=== PATIENT | male | born 1970 | race Two or more races ===

== ENCOUNTER → 2016-03-19 | Outpatient (REF) | payer OTHER | LOC: M SFHCADAM 10:05 | PROVIDERS: ATTEND Family Medicine | DX: Z00.00 Encounter for general adult medical examination without abnormal findings (principal) ==

== ENCOUNTER → 2016-03-22 | Outpatient (REF) | payer OTHER ==
[2016-03-22 13:19] LABS: BASO # 0.1 K/mm3 (0.0-0.2); BASO % 0.5 % (0.0-1.0); EOS # 0.2 K/mm3 (0.0-0.50); EOS % 1.5 % (0.0-3.0); LARGE UNSTAINED CELL # 0.3 K/mm3 (0.0-0.4); LARGE UNSTAINED CELL % 3.1 % (0.0-4.0); LYMPH % 15.6 % (24.0-44.0); MEAN CORPUSCULAR HEMOGLOBIN 28.5 pg (27.0-33.0); MEAN CORPUSCULAR HGB CONC 33.8 g/dl (32.0-36.5); MEAN CORPUSCULAR VOLUME 84.3 fl (80.0-96.0); MONO # 1.2 K/mm3 (0.0-0.8); MONO % 10.7 % (0.0-5.0); NEUTROPHILS # 7.5 K/mm3 (1.8-7.7); NEUTROPHILS % 68.6 % (36.0-66.0); PLATELET COUNT, AUTOMATED 248 k/mm3 (150-450); RED CELL DISTRIBUTION WIDTH 13.5 % (11.5-14.5)
[2016-03-22 13:24] LABS: ALBUMIN 3.6 GM/DL (3.2-5.2); ALBUMIN/GLOBULIN RATIO 1.03 (1.00-1.93); ALKALINE PHOSPHATASE 77 U/L (45-117); ALT/SGPT 40 U/L (12-78); ANION GAP 9 MEQ/L (8-16); AST/SGOT 16 U/L (15-37); BILIRUBIN,TOTAL 0.3 MG/DL (0.2-1.0); BLOOD UREA NITROGEN 12 MG/DL (7-18); CALCIUM LEVEL 8.5 MG/DL (8.5-10.1); CARBON DIOXIDE LEVEL 27 MEQ/L (21-32); CHLORIDE LEVEL 103 MEQ/L (98-107); CHOLESTEROL LEVEL 213 MG/DL (<200); CREATININE FOR GFR 0.83 MG/DL (0.70-1.30); FREE T4 1.01 NG/DL (0.76-1.46); GLOMERULAR FILTRATION RATE > 60.0 (>60); GLUCOSE, FASTING 110 MG/DL (70-105); SODIUM LEVEL 139 MEQ/L (136-145); TOTAL PROTEIN 7.1 GM/DL (6.4-8.2); TRIGLYCERIDES LEVEL 365 MG/DL (<150)
== END ==
LOC: M SFHCADAM 10:12
PROVIDERS: ATTEND Family Medicine
DX: Z00.00 Encounter for general adult medical examination without abnormal findings (principal)

== ENCOUNTER → 2016-04-13 | Outpatient (REF) | payer OTHER | LOC: M SFHCADAM 10:24 | PROVIDERS: ATTEND Family Medicine | DX: R73.01 Impaired fasting glucose (principal) ==

== ENCOUNTER 2017-04-08 06:34 | Emergency (ER) | payer OTHER | END 2017-04-08 09:08 | disposition home or self-care (01) | LOC: M ED 06:34 | DX: S22.41XA Multiple fractures of ribs, right side, initial encounter for closed fracture (principal); X58.XXXA Exposure to other specified factors, initial encounter; Y93.72 Activity, wrestling; F17.210 Nicotine dependence, cigarettes, uncomplicated; E66.9 Obesity, unspecified; Z98.890 Other specified postprocedural states | CPT/HCPCS: 71101 ==

== ENCOUNTER → 2017-10-28 | Outpatient (CLI) | payer OTHER | LOC: M ADAMS 17:51 | DX: M54.5 Low back pain (principal) | CPT/HCPCS: 72100 ==

== ENCOUNTER → 2018-03-20 | Outpatient (REF) | payer OTHER ==
[~2018-03-20] MED LIST: NORCOTAB PO
[2018-03-20 14:27] LABS: ALBUMIN 3.7 GM/DL (3.2-5.2); ALT/SGPT 26 U/L (12-78); BILIRUBIN,TOTAL 0.2 MG/DL (0.2-1.0); BLOOD UREA NITROGEN 9 MG/DL (7-18); CALCIUM LEVEL 8.7 MG/DL (8.5-10.1); CARBON DIOXIDE LEVEL 26 MEQ/L (21-32); CHLORIDE LEVEL 103 MEQ/L (98-107); CHOLESTEROL LEVEL 229 MG/DL (<200); CHOLESTEROL RISK RATIO 6.026 (<5); CREATININE FOR GFR 0.74 MG/DL (0.70-1.30); GLOMERULAR FILTRATION RATE > 60.0 (>60); GLUCOSE, FASTING 112 MG/DL (70-100); HDL CHOLESTEROL 38 MG/DL (>40); NON-HDL-C 191 MG/DL; SODIUM LEVEL 138 MEQ/L (136-145); TOTAL PROTEIN 6.8 GM/DL (6.4-8.2); TRIGLYCERIDES LEVEL 467 MG/DL (<150)
[2018-03-20 14:53] LABS: HEMOGLOBIN A1c 6.4 %
== END ==
LOC: M LABDRWAD 12:10
PROVIDERS: ATTEND Family Medicine
DX: R73.01 Impaired fasting glucose (principal); E78.5 Hyperlipidemia, unspecified

== ENCOUNTER → 2018-03-20 | Outpatient (CLI) | payer OTHER ==
[2018-03-20 14:26] LABS: ALBUMIN 3.7 GM/DL (3.2-5.2); ALT/SGPT 30 U/L (12-78); BILIRUBIN,TOTAL 0.3 MG/DL (0.2-1.0); BLOOD UREA NITROGEN 9 MG/DL (7-18); CALCIUM LEVEL 8.9 MG/DL (8.5-10.1); CARBON DIOXIDE LEVEL 26 MEQ/L (21-32); CHLORIDE LEVEL 103 MEQ/L (98-107); CREATININE FOR GFR 0.76 MG/DL (0.70-1.30); GLOMERULAR FILTRATION RATE > 60.0 (>60); GLUCOSE, FASTING 113 MG/DL (70-100); LIPASE 144 U/L (73-393); MAGNESIUM LEVEL 2.2 MG/DL (1.8-2.4); SODIUM LEVEL 137 MEQ/L (136-145); TOTAL PROTEIN 6.9 GM/DL (6.4-8.2)
[2018-03-20 14:28] LABS: BASO # 0.1 10^3/uL (0.0-0.2); BASO % 0.9 % (0.0-1.0); EOS # 0.1 10^3/uL (0.0-0.50); EOS % 1.4 % (0.0-3.0); HEMATOCRIT 43.2 % (42.0-52.0); HEMOGLOBIN 14.6 g/dl (13.5-17.5); LYMPH # 1.4 10^3/uL (1.5-4.5); MEAN CORPUSCULAR HEMOGLOBIN 28.6 pg (27.0-33.0); MEAN CORPUSCULAR HGB CONC 33.8 g/dl (32.0-36.5); MEAN CORPUSCULAR VOLUME 84.5 fl (80.0-96.0); MONO # 0.9 10^3/uL (0.0-0.8); MONO % 12.1 % (0.0-5.0); NEUTROPHILS # 5.1 10^3/uL (1.8-7.7); NEUTROPHILS % 67.1 % (36.0-66.0); PLATELET COUNT, AUTOMATED 229 10^3/uL (150-450); RED BLOOD COUNT 5.11 10^6/uL (4.30-6.10); WHITE BLOOD COUNT 7.6 10^3/uL (4.0-10.0)
--- NOTE | 2018-03-21 03:39 | REP ---
Clinical: Chest pain . Comparison: 01/31/2003 . Technique: PA and lateral. Findings: The mediastinum and cardiac silhouette are normal. The lung ugarte are clear and without acute consolidation, effusion, or pneumothorax. The skeletal structures are intact and normal. Impression: 1. No acute cardiopulmonary process. Electronically Signed by Sharan Rosales MD 03/21/2018 03:30 A
== END ==
LOC: M ADAMS 09:16
PROVIDERS: ATTEND Physician Assistant
DX: R07.9 Chest pain, unspecified (principal)

== ENCOUNTER → 2018-08-10 | Outpatient (REF) | payer OTHER ==
[~2018-08-10] MED LIST changes: +HYDR-3715 PO; -NORCOTAB PO
[2018-08-10 18:08] LABS: HEMOGLOBIN A1c 6.3 %
== END ==
LOC: M SFHCADAM 14:54
PROVIDERS: ATTEND Family Medicine
DX: R73.03 Prediabetes (principal)

== ENCOUNTER → 2019-01-31 | Outpatient (REF) | payer OTHER | LOC: M SFHCADAM 15:07 | PROVIDERS: ATTEND Family Medicine | DX: M51.36 Other intervertebral disc degeneration, lumbar region (principal); R73.03 Prediabetes; E78.2 Mixed hyperlipidemia ==

== ENCOUNTER → 2019-03-23 | Outpatient (REF) | payer OTHER ==
[2019-03-23 14:26] LABS: BLOOD UREA NITROGEN 11 MG/DL (7-18); CREATININE FOR GFR 0.77 MG/DL (0.70-1.30); GLOMERULAR FILTRATION RATE > 60.0 (>60)
== END ==
LOC: M LABDRAW1 13:12
PROVIDERS: ATTEND Physician Assistant
DX: M47.816 Spondylosis without myelopathy or radiculopathy, lumbar region (principal)

== ENCOUNTER → 2019-05-07 | Outpatient (REF) | payer OTHER ==
[2019-05-07 16:20] LABS: BASO # 0.1 10^3/uL (0.0-0.2); BASO % 1.4 % (0.0-1.0); EOS # 0.1 10^3/uL (0.0-0.5); HEMATOCRIT 47.3 % (42.0-52.0); LYMPH # 1.5 10^3/uL (1.5-5.0); LYMPH % 24.1 % (24.0-44.0); MEAN CORPUSCULAR HEMOGLOBIN 28.9 pg (27.0-33.0); MEAN CORPUSCULAR HGB CONC 33.8 g/dl (32.0-36.5); MEAN CORPUSCULAR VOLUME 85.4 fl (80.0-96.0); MONO # 0.7 10^3/uL (0.0-0.8); MONO % 11.4 % (0.0-5.0); NEUTROPHILS # 3.9 10^3/uL (1.5-8.5); NEUTROPHILS % 60.8 % (36.0-66.0); PLATELET COUNT, AUTOMATED 250 10^3/uL (150-450); RED BLOOD COUNT 5.54 10^6/uL (4.30-6.10); WHITE BLOOD COUNT 6.4 10^3/uL (4.0-10.0)
[2019-05-07 16:27] LABS: ALBUMIN 3.8 GM/DL (3.2-5.2); ALT/SGPT 32 U/L (12-78); BILIRUBIN,TOTAL 0.4 MG/DL (0.2-1.0); BLOOD UREA NITROGEN 10 MG/DL (7-18); CARBON DIOXIDE LEVEL 27 MEQ/L (21-32); CHLORIDE LEVEL 108 MEQ/L (98-107); CHOLESTEROL LEVEL 240 MG/DL (<200); CHOLESTEROL RISK RATIO 5.853 (<5); CREATININE FOR GFR 0.76 MG/DL (0.70-1.30); GLOMERULAR FILTRATION RATE > 60.0 (>60); GLUCOSE, FASTING 112 MG/DL (70-100); HDL CHOLESTEROL 41 MG/DL (>40); NON-HDL-C 199 MG/DL; POTASSIUM SERUM 4.1 MEQ/L (3.5-5.1); SODIUM LEVEL 140 MEQ/L (136-145); TOTAL PROTEIN 7.5 GM/DL (6.4-8.2); TRIGLYCERIDES LEVEL 518 MG/DL (<150)
[2019-05-07 16:36] LABS: HEMOGLOBIN A1c 6.5 %
== END ==
LOC: M SFHCADAM 16:00
PROVIDERS: ATTEND Family Medicine
DX: M51.36 Other intervertebral disc degeneration, lumbar region (principal); R73.03 Prediabetes; E78.2 Mixed hyperlipidemia

== ENCOUNTER → 2019-05-10 | Outpatient (REF) | payer OTHER ==
[2019-05-10 12:55] LABS: HEMOGLOBIN A1c 6.3 %
== END ==
LOC: M SFHCADAM 11:16
PROVIDERS: ATTEND Family Medicine
DX: R73.09 Other abnormal glucose (principal)

== ENCOUNTER 2020-04-06 01:59 | Emergency (ER) | payer OTHER ==
[~2020-04-06] VITALS: Ht 175.3 cm; Wt 127.8 kg
[2020-04-06] MEDS ORDERED: OMEP-405 PO (02:08)
[2020-04-06] MEDS ORDERED: IBUP1TAB6 PO (02:08)
[2020-04-06] MEDS ORDERED: MOM30SS PO (02:09)
--- OUTSIDE RECORDS SUMMARY | 2020-04-06 02:09 | CCD ---
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 Name Role Phone ANTECOL, Matt PUENTE MD Unavailable Unavailable ANTECOL, Matt PUENTE MD Unavailable Unavailable ANTECOL, Matt PUENTE MD Unavailable Unavailable ANTECOL, Matt PUENTE MD Unavailable Unavailable ANTECOLMatt MD Unavailable Unavailable ANTECOL, Matt PUENTE MD Unavailable Unavailable ANTECOL, Matt PUENTE MD Unavailable Unavailable ANTECOL, Matt PUENTE MD Unavailable Unavailable ANTECOLMatt MD Unavailable Unavailable ANTECOLMatt MD Unavailable Unavailable ANTECOLMatt MD Unavailable Unavailable ANTECOLMatt MD Unavailable Unavailable ANTECOLMatt MD Unavailable Unavailable ANTECOL, Matt PUENTE MD Unavailable Unavailable ANTECOLMatt MD Unavailable Unavailable ANTECOLMatt MD Unavailable Unavailable ANTECOLMatt MD Unavailable Unavailable ANTECOLMatt MD Unavailable Unavailable ANTECOLMatt MD Unavailable Unavailable ANTECOLMatt MD Unavailable Unavailable ANTECOLMatt MD Unavailable Unavailable ANTECOLMatt MD Unavailable Unavailable ANTECOLMatt MD Unavailable Unavailable ANTECOLMatt MD Unavailable Unavailable ANTECOLMatt MD Unavailable Unavailable ANTECOLMatt MD Unavailable Unavailable ANTECOLMatt MD Unavailable Unavailable ANTECOLMatt MD Unavailable Unavailable ANTECOLMatt MD Unavailable Unavailable ANTECOLMatt MD Unavailable Unavailable ANTECOLMatt MD Unavailable Unavailable ANTECOLMatt MD Unavailable Unavailable ANTECOLMatt MD Unavailable Unavailable ANTECOL, Matt PUENTE MD Unavailable Unavailable ANTECOL, Matt PUENTE MD Unavailable Unavailable ANTECOL, Matt PUENTE MD Unavailable Unavailable ANTECOL, Matt PUENTE MD Unavailable Unavailable ANTECOL, Matt PUENTE MD Unavailable Unavailable ANTECOL, Matt PUENTE MD Unavailable Unavailable ANTECOL, Matt PUENTE MD Unavailable Unavailable ANTECOL, Matt PUENTE MD Unavailable Unavailable ANTECOL, Matt PUENTE MD Unavailable Unavailable ANTECOL, Matt PUENTE MD Unavailable Unavailable ANTECOL, Matt PUENTE MD Unavailable Unavailable ANTECOL, Matt PUENTE MD Unavailable Unavailable ANTECOL, Matt PUENTE MD Unavailable Unavailable ANTECOL, Matt PUENTE MD Unavailable Unavailable ANTECOL, Matt PUENTE MD Unavailable Unavailable ANTECOL, Matt PUENTE MD Unavailable Unavailable ANTECOL, Matt PUENTE MD Unavailable Unavailable ANTECOL, Matt PUENTE MD Unavailable Unavailable ANTECOL, Matt PUENTE MD Unavailable Unavailable ANTECOL, Matt PUENTE MD Unavailable Unavailable ANTECOL, Matt PUENTE MD Unavailable Unavailable ANTECOL, Matt PUENTE MD Unavailable Unavailable JOSE, M ALEJANDRO PA Unavailable Unavailable JOSE, M ALEJANDRO PA Unavailable Unavailable JOSE, M ALEJANDRO PA Unavailable Unavailable JOSE, M ALEJANDRO PA Unavailable Unavailable JOSE, M ALEJANDRO PA Unavailable Unavailable JOSE, M ALEJANDRO PA Unavailable Unavailable JOSE, M ALEJANDRO PA Unavailable Unavailable JOSE, M ALEJANDRO PA Unavailable Unavailable JOSE, M ALEJANDRO PA Unavailable Unavailable JOSE, M ALEJANDRO PA Unavailable Unavailable JOSE, M ALEJANDRO PA Unavailable Unavailable JOSE, M ALEJANDRO PA Unavailable Unavailable JOSE, M ALEJANDRO PA Unavailable Unavailable JOSE, M ALEJANDRO PA Unavailable Unavailable JOSE, M ALEJANDRO PA Unavailable Unavailable JOSE, M ALEJANDRO PA Unavailable Unavailable JOSE, M ALEJANDRO PA Unavailable Unavailable JOSE, M ALEJANDRO PA Unavailable Unavailable JOSE, M ALEJANDRO PA Unavailable Unavailable JOSE, M ALEJANDRO PA Unavailable Unavailable JOSE, M ALEJANDRO PA Unavailable Unavailable JOSE, M ALEJANDRO PA Unavailable Unavailable JOSE, M ALEJANDRO PA Unavailable Unavailable JOSE, M ALEJANDRO PA Unavailable Unavailable Re-disclosure Warning The records that you are about to access may contain information from federally-assisted alcohol or drug abuse programs. If such information is present, then the following federally mandated warning applies: This information has been disclosed to you from records protected by federal confidentiality rules (42 CFR part 2). The federal rules prohibit you from making any further disclosure of this information unless further disclosure is expressly permitted by the written consent of the person to whom it pertains or as otherwise permitted by 42 CFR part 2. A general authorization for the release of medical or other information is NOT sufficient for this purpose. The Federal rules restrict any use of the information to criminally investigate or prosecute any alcohol or drug abuse patient.The records that you are about to access may contain highly sensitive health information, the redisclosure of which is protected by Article 27-F of the [facility] Public Health law. If you continue you may have access to information: Regarding HIV / AIDS; Provided by facilities licensed or operated by the [facility] Office of Mental Health; or Provided by the [facility] Office for People With Developmental Disabilities. If such information is present, then the following [facility] mandated warning applies: This information has been disclosed to you from confidential records which are protected by state law. State law prohibits you from making any further disclosure of this information without the specific written consent of the person to whom it pertains, or as otherwise permitted by law. Any unauthorized further disclosure in violation of state law may result in a fine or fci sentence or both. A general authorization for the release of medical or other information is NOT sufficient authorization for further disc losure. Family History Family Member Name Family Member Gender Family Member Status Date o f Status Description Data Source(s) Unknown Unknown Problem MEDENT ([facility]) Unknown Unknown Problem MEDENT ([facility]) Unknown Male Problem MEDENT ([facility]) Encounters Encounter Providers Location Date Indications Data Source(s ) Outpatient [address] [facility] [id number] 11/26/2019 12:00:00 AM EDT eCW1 ([facility]) [facility] [place] [address] [facility] [place] [address] 06/06/2019 12:00:00 AM EDT eCW1 ([facility]) [facility] [place] [address] [facility] [place] [address] 06/04/2019 12:00:00 AM EDT eCW1 ([facility]) [facility] [place] [address] [facility] [place] [address] 05/20/2019 12:00:00 AM EDT eCW1 ([facility]) Outpatient Attender: KWAME MULLINS MD Main Office 05/17/2019 08:45:00 AM EDT MEDENT ([facility]) [facility] [place] [address] [facility] [address] 05/10/2019 12:00:00 AM EDT eCW1 ([facility]) [facility] [place] [address] [facility] [address] 05/02/2019 12:00:00 AM EDT eCW1 ([facility]) Outpatient Attender: ALEJANDRO VALDIVIA Physical Therapy 03/17 12:30:00 PM EST MEDENT ([facility]) Outpatient Attender: ALEJANDRO VALDIVIA Physical Therapy 02/14 09:30:00 AM EST MEDENT ([facility]) [facility] [place] [address] [facility] [address] 02/06/2019 12:00:00 AM EST eCW1 ([facility]) Immunizations Vaccine Date Status Description Data Source(s) influenza, recombinant, quadrIvalent,injectable, prese rvative free 11/26/2019 10:52:00 AM EDT completed eCW1 ([facility]) Medications Medication Brand Name Start Date Product Form Dose Route Admi nistrative Instructions Pharmacy Instructions Status Indications Reaction Description Data Source(s) levocetirizine dihydrochloride 5 MG Oral Tablet LEVOCETIRIZI NE DIHYDROCHLORIDE 06/07/2019 12:00:00 AM EDT tablet 30 TAKE ONE TABLE T BY MOUTH EVERY EVENING TAKE ONE TABLET BY MOUTH EVERY EVENING SOLD: 06/12/2019 [facility] levocetirizine dihydrochloride 5 MG Oral Tablet Levocetirizine Dihydrochloride 5 MG Levocetirizine Dihydrochloride 5 MG 06/06/2019 12:00:00 AM EDT active 1 tablet in [facility] evening [facility] levocetirizine dihydrochloride 5 MG Oral Tablet Levocetirizine Dihydrochloride 5 MG Levocetirizine Dihydrochloride 5 MG 06/06/2019 12:00:00 AM EDT 1.0 {tablet_in_the_evening} active Levoceti rizine Dihydrochloride 5 MG eCW1 ([facility]) Ashley Allergy 180 MG Ashley Allergy 180 MG 06/04/2019 12:00:00 AM E DT active 1 tablet as needed eCW1 ( [facility]) Ashley Allergy 180 MG Ashley Allergy 180 MG 06/04/2019 12:00:00 A M EDT 1.0 {tablet_as_needed} active Ashley Aller gy 180 MG eCW1 ([facility]) Nasacort Allergy 24HR 55 MCG/ACT Nasacort Allergy 24HR 55 MC G/ACT 06/04/2019 12:00:00 AM EDT active 1 spray in each nostril eCW1 ([facility]) 55 mcg 06/04/2019 12:00:00 AM EDT aerosol,spray 16 SPRAY 1 SPRAY IN EACH NOSTRIL ONCE DAILY SPRAY 1 SPRAY IN EACH NOSTRIL ONCE DAILY SOLD: 06/05/2019 [facility] Nasacort Allergy 24HR 55 MCG/ACT Nasacort Allergy 24HR 55 MC G/ACT 06/04/2019 12:00:00 AM EDT 1.0 {spray_in_each_nostril} acti ve Nasacort Allergy 24HR 55 MCG/ACT eCW1 ([facility]) atorvastatin 40 MG Oral Tablet Atorvastatin Calcium 40 MG Atorvastatin Calcium 40 MG 05/21/2019 12:00:00 AM EDT active 1 tablet eCW1 ([facility]) Metformin hydrochloride 500 MG Oral Tablet Metformin HCL 05/21/2019 12:00:00 AM EDT ORAL active MEDENT ([facility] 40 mg 05/21/2019 12:00:00 AM EDT tablet 30 TAKE 1 TABLET BY MOUTH ONCE A DAY TAKE 1 TABLET BY MOUTH ONCE A DAY SOLD: 05/29/2019 [facility] Rosuvastatin calcium 40 MG Oral Tablet Rosuvastatin Ca lcium 40 MG Rosuvastatin Calcium 40 MG 05/20/2019 12:00:00 AM EDT active 1 tablet eCW1 ([facility]) Gemfibrozil 600 MG Oral Tablet Gemfibrozil 05/17/2019 12:00:00 AM EDT ORAL active MEDENT ([facility]) Metformin hydrochloride 1000 MG Oral Tablet Metformin HCL ER (Mod) 05/17/2019 12:00:00 AM EDT ORAL completed MEDENT ([facility]) cetirizine hydrochloride 10 MG Oral Tablet [Zyrtec] Zyrtec A llergy 05/16/2019 12:00:00 AM EDT ORAL active M EDENT ([facility]) Flonase Allergy Relief Flonase Allergy Relief 05/16/2019 12:00:00 AM E DT active MEDENT ([facility]) Omeprazole 20 MG Delayed Release Oral Capsule Omeprazole 05/16/2019 12:00:00 AM EDT ORAL active MEDENT ([facility]) cetirizine hydrochloride 10 MG Oral Capsule [Zyrtec] Z yrtec Allergy 10 MG Zyrtec Allergy 10 MG 05/10/2019 12:00:00 AM EDT 1.0 {capsule} active Zyrtec Allergy 10 MG eCW1 ([facility]) 10 mg 05/10/2019 12:00:00 AM EDT tablet 30 TAKE ONE TABLET BY MOUTH EVERY DAY TAKE ONE TABLET BY MOUTH EVERY DAY SOLD: 05/16/2019 [facility] 20 mg 05/10/2019 12:00:00 AM EDT capsule,delayed release (DR/EC) 90 TAKE ONE CAPSULE BY MOUTH EVERY DAY TAKE ONE CAPSULE BY MOUTH EVERY DAY SOLD: 05/16/2019 [facility] cetirizine hydrochloride 10 MG Oral Capsule [Zyrtec] Z yrtec Allergy 10 MG Zyrtec Allergy 10 MG 05/10/2019 12:00:00 AM EDT active 1 capsule eCW1 ([facility]) Flonase Allergy Relief 50 MCG/ACT Flonase Allergy Relief 50 MCG/ACT 05/10/2019 12:00:00 AM EDT active 1 spray in each nostril eCW1 ([facility]) Flonase Allergy Relief 50 MCG/ACT Flonase Allergy Relief 50 MCG/ACT 05/10/2019 12:00:00 AM EDT 1.0 {spray_in_each_nostril} acti ve Flonase Allergy Relief 50 MCG/ACT eCW1 ([facility]) cetirizine hydrochloride 10 MG Oral Capsule [Zyrtec] Z yrtec Allergy 10 MG Zyrtec Allergy 10 MG 05/10/2019 12:00:00 AM EDT active 1 capsule eCW1 ([facility]) Flonase Allergy Relief 50 MCG/ACT Flonase Allergy Relief 50 MCG/ACT 05/10/2019 12:00:00 AM EDT active 1 spray in each nostril eCW1 ([facility]) 50 mcg/actuation 05/10/2019 12:00:00 AM EDT spray,suspension 16 SPRAY ONE SPRAY IN EACH NOSTRIL EVERY DAY SPRAY ONE SPRAY IN EACH NOSTRIL EVERY DAY SOLD: 05/16/2019 [facility] 15 mg 02/28/2019 12:00:00 AM EST tablet 30 TAKE ONE TABLET BY MOUTH EVERY DAY WITH FOOD OR MILK TAKE ONE TABLET BY MOUTH EVERY DAY WITH FOOD OR MILK S OLD: 03/03/2019 [facility] meloxicam 15 MG Oral Tablet Meloxicam 02/28/2019 12:00:00 AM EST ORAL active MEDENT ([facility]) Insurance Providers Payer name Policy type / Coverage type Policy ID Covered democrat ID Covered democrat's relationship to ngo Policy Ngo Plan Information [facility] [id number] SP [id number] [facility] [id number] SP [id number] [facility]-Medicaid [id number] [facility]-Medicaid [id number] [facility] Health Maintenance Organization (O) [id number] Self [id number] [facility] [id number] [facility] Organization (HMO) [id number] Self [id number] [facility] [id number] [facility] Health Maintenance Organization (HMO) [id number] Self [id number] [facility] Health Maintenance Organization (HMO) [id number] Self [id number] ANSI-Medicaid [id number] ANSI-Medicaid [id number] ANSI-Medicaid [id number] ANSI-Medicaid [id number] ANSI-Medicaid [id number] ANSI-Medicaid [id number] ANSI-Medicaid [id number] [facility] Community Plan Commercial [id number] Self [id number] ANSI-Medicaid [id number] [facility] Community Plan Commercial [id number] Self [id number] [facility] Community Plan Commercial Self MEDICAID [id number] SP [id number] [facility] [facility] [id number] Problems, Conditions, and Diagnoses Code Display Name Description Problem Type Effective Dates Data Source(s) E78.1 [id number] Hypertriglyceridemia Problem 06/04/2019 12:0 0:00 AM EDT eCW1 ([facility]) E78.1 [id number] Hypertriglyceridemia Problem 06/04/2019 12:0 0:00 AM EDT eCW1 ([facility]) [id number] Snoring Snoring Problem 05/17/2019 12:00:00 AM ED T MEDENT ([facility]) [id number] Prediabetes Prediabetes Problem 05/17/2019 12:00:00 AM EDT MEDENT ([facility]) [id number] Elevated blood-pressure reading without diagnosis of hypertension Elevated blood-pressure reading without diagnosis of hypertension Problem 05/17/2019 12:00:00 AM EDT MEDENT ([facility]) [id number] Dietary management surveillance Dietary manageme nt surveillance Problem 05/17/2019 12:00:00 AM EDT MEDENT ([facility]) [id number] Obesity Obesity Problem 05/17/2019 12:00:00 AM ED T MEDENT ([facility]) [id number] Mixed hyperlipidemia Mixed hyperlipidemia Problem 05/17/2019 12:00:00 AM EDT MEDENT ([facility]) [id number] Electrocardiogram abnormal Electrocardiogram abnormal Problem 05/17/2019 12:00:00 AM EDT MEDENT ([facility]) [id number] Chest pain Chest pain Problem 05/17/2019 12:00:00 AM ED T MEDENT ([facility]) J30.9 [id number] Allergic rhinitis, unspecified s easonality, unspecified trigger Problem 05/10/2019 12:00:00 AM EDT eCW1 ([facility]) E78.5 [id number] Hyperlipidemia, unspecified hyperlipidemi a type Problem 05/10/2019 12:00:00 AM EDT eCW1 ([facility]) J30.9 64394954 Allergic rhinitis, unspecified s easonality, unspecified trigger Problem 05/10/2019 12:00:00 AM EDT eCW1 ([facility]) [id number] Pure hypercholesterolemia Pure hypercholesterolemia Pr oblem 02/28/2019 12:00:00 AM EST MEDENT ([facility]) Surgeries/Procedures Procedure Description Date Indications Data Source(s) ECG ROUTINE ECG W/LEAST 12 LDS W/I&R 05/17/2019 12:00: 00 AM EDT MEDENT ([facility]) Results ID Date Data Source [id number] 05/10/2019 12:00:00 AM EDT eCW1 ([facility]) Name Value Range Interpretation Code Description Data Analia rce(s) Supporting Document(s) Hemoglobin A1c/Hemoglobin.total in Blood 6.3 HEMOGLOBIN A1c eCW1 ([facility]) ID Date Data Source [id number] 05/07/2019 01:59:00 PM EDT MEDENT ([facility]) Name Value Range Interpretation Code Description Data Analia rce(s) Supporting Document(s) White Blood Count 6.4 4.0-10.0 MEDENT ([facility]) Red Blood Count 5.54 4.30-6.10 MED[facility] ([facility]) Hematocrit 47.3 MEDENT ([facility]) Hemoglobin 16.0 MEDENT ([facility]) Platelets 250 150-450 [facility] ([facility] ID Date Data Source [id number] 05/07/2019 01:59:00 PM EDT MEDENT ([facility]) Name Value Range Interpretation Code Description Data Analia rce(s) Supporting Document(s) Cholesterol 240 MEDENT ([facility]) Triglycerides 518 [facility] ([facility] Cholesterol in LDL [Mass/volume] in Serum or Plasma by calculation -- MEDENT ([facility]) Chol/HDL Ratio 5.853 MEDENT ([facility]) HDL 41 [facility] ID Date Data Source [id number] 05/07/2019 01:59:00 PM EDT MEDENT ([facility]) Name Value Range Interpretation Code Description Data Analia rce(s) Supporting Document(s) Albumin [Mass/volume] in Serum or Plasma 3.8 MEDENT ([facility]) Alanine aminotransferase [Enzymatic activity/volume] in Serum or Pl asma 32 MEDENT ([facility]) Calcium [Mass/volume] in Serum or Plasma 9.0 MEDENT ([facility]) Carbon dioxide, total [Moles/volume] in Serum or Plasma 27 MEDENT ([facility]) Chloride [Moles/volume] in Serum or Plasma 108 MEDENT ([facility]) Alkaline phosphatase [Enzymatic activity/volume] in Serum or Plasma 7 5 MEDENT ([facility]) Potassium [Moles/volume] in Serum or Plasma 4.1 MEDENT ([facility]) Aspartate aminotransferase [Enzymatic activity/volume] in Serum or Plasma 13 MEDENT ([facility]) Protein [Mass/volume] in Serum or Plasma 7.5 MEDENT ([facility]) Sodium 140 [facility] ([facility] Glucose 112 70-100 MED[facility] ([facility] Urea nitrogen [Mass/volume] in Serum or Plasma 10 MEDENT ([facility]) Creatinine For GFR 0.76 MEDENT ([facility]) ID Date Data Source [id number] 03/23/2019 11:27:00 AM EST MEDENT ([facility]) Name Value Range Interpretation Code Description Data Analia rce(s) Supporting Document(s) Glomerular Filtration Rate > 60.0 MED ENT ([facility]) <content>Units are mL/min/1.73 m2</content>
<content></content>
<content>Chronic Kidney Disease Staging per NKF:</content>
<content></content>
<content>Stage I & II GFR >=60 Normal to Mildly Decreased</content>
<content>Stage III GFR 30- 59 Moderately Decreased</content>
<content>Stage IV GFR 15-29 Severely Decreased</content>
<content>Stage V GFR <15 Very Little GFR Left</content>
<content>ESRD GFR <15 on MARINE DIESEL TECHNICIAN</content>
<content></content> Creatinine For GFR 0.77 mg/dL 0.70-1.30 MEDENT ([facility]) ID Date Data Source [id number] 03/23/2019 11:27:00 AM EST MEDENT ([facility]) Name Value Range Interpretation Code Description Data Analia rce(s) Supporting Document(s) Urea nitrogen [Mass/volume] in Serum or Plasma 11 mg/dL 7-18 MEDENT ([facility]) Procedure Social History Code Duration Value Status Description Data Source(s ) Smoking 12/03/2019 12:00:00 AM EDT Former Smoker completed Former Smoker eCW1 ([facility]) Vital Signs ID Date Data Source [id number] Name Value Range Interpretation Code Description Data Source(s) Diastolic blood pressure 74 mm[Hg] 74 mm[Hg] eCW1 ([facility]) Systolic blood pressure 138 mm[Hg] 138 mm[Hg] e CW1 ([facility]) Body temperature 97.4 [degF] 97.4 [degF] eCW1 ( [facility]) Respiratory rate 18 /min 18 /min [facility] Heart rate 94 /min 94 /min eCW1 ([facility]) Body mass index (BMI) [Ratio] 39.57 kg/m2 39.57 kg/m2 eCW1 ([facility]) Body height [in_i] eCW1 ([facility]) Body weight 268 [lb_av] 268 [lb_av] W1 ([facility]) Diastolic blood pressure 72 mm[Hg] 72 mm[Hg] eCW1 ([facility]) Systolic blood pressure 122 mm[Hg] 122 mm[Hg] e CW1 ([facility]) Body temperature 95.6 [degF] 95.6 [degF] eCW1 ( [facility]) Respiratory rate 18 /min 18 /min [facility] Heart rate 101 /min 101 /min eCW1 ([facility]) Body mass index (BMI) [Ratio] 38.51 kg/m2 38.51 kg/m2 W1 ([facility]) Body height [in_us] eCW1 ([facility]) Body weight Measured 260.8 [lb_av] 260.8 [lb_av ] eCW1 ([facility]) Diastolic blood pressure--sitting 96 mm[Hg] 96 mm[Hg] MEDENT ([facility]) Omron XL cuff, Ra Systolic blood pressure--sitting 133 mm[Hg] 133 mm[Hg] MEDENT ([facility]) Omron XL cuff, Ra Heart rate 83 /min 83 /min MEDENT ([facility]) Body mass index (BMI) [Ratio] 37.8 kg/m2 37.8 k g/m2 MEDENT ([facility]) Body height 69 [in_i] 69 [in_i] MEDENT ([facility]) 5'9" Body weight 256.00 [lb_av] 256.00 [lb_av] MEDEN T ([facility]) Diastolic blood pressure 74 mm[Hg] 74 mm[Hg] [facility]CW1 [facility] [facility] Systolic blood pressure 128 mm[Hg] 128 mm[Hg] e CW1 ([facility]) Body temperature 96.5 [degF] 96.5 [degF] eCW1 ( [facility]) Respiratory rate 18 /min 18 /min [facility] Heart rate 116 /min 116 /min eCW1 ([facility]) Body mass index (BMI) [Ratio] 38.18 kg/m2 38.18 kg/m2 eCW1 ([facility]) Body height [in_us] eCW1 ([facility]) Body weight Measured 258.6 [lb_av] 258.6 [lb_av ] eCW1 ([facility]) Body mass index (BMI) [Ratio] 31.4 kg/m2 31.4 k g/m2 MEDENT ([facility]) Body weight 225.25 [lb_av] 225.25 [lb_av] MEDEN T ([facility]) Body height 71 [in_i] 71 [in_i] MEDENT ([facility]) 5'11" Patient Treatment Plan of Care Planned Activity Planned Date Details Description Data Source (s) levocetirizine dihydrochloride 5 MG Oral Tablet 06/06/2019 12:00:00 AM EDT eCW1 ([facility]) Nasacort Allergy 24HR 55 MCG/ACT 06/04/2019 12:00:00 AM EDT eCW1 ([facility]) Ashley Allergy 180 MG 06/04/2019 12:00:00 AM EDT eCW1 ([facility]) atorvastatin 40 MG Oral Tablet 05/21/2019 12:00:00 AM EDT eCW1 ([facility]) Rosuvastatin calcium 40 MG Oral Tablet 05/20/2019 12:00:00 AM EDT eCW1 ([facility]) cetirizine hydrochloride 10 MG Oral Capsule [Zyrtec] 020 12:00:00 AM EDT eCW1 ([facility]) Flonase Allergy Relief 50 MCG/ACT 05/10/2019 12:00:00 AM EDT eCW1 ([facility])
[2020-04-06 03:02] LABS: BASO # 0.1 10^3/uL (0.0-0.2); BASO % 1.1 % (0.0-1.0); EOS # 0.1 10^3/uL (0.0-0.5); EOS % 1.9 % (0.0-3.0); HEMATOCRIT 42.3 % (42.0-52.0); HEMOGLOBIN 13.7 g/dl (13.5-17.5); LYMPH # 1.5 10^3/uL (1.5-5.0); LYMPH % 22.7 % (24.0-44.0); MEAN CORPUSCULAR HEMOGLOBIN 27.1 pg (27.0-33.0); MEAN CORPUSCULAR HGB CONC 32.4 g/dl (32.0-36.5); MEAN CORPUSCULAR VOLUME 83.8 fl (80.0-96.0); MONO # 0.8 10^3/uL (0.0-0.8); MONO % 13.1 % (2.0-8.0); NEUTROPHILS # 3.9 10^3/uL (1.5-8.5); NEUTROPHILS % 60.6 % (36.0-66.0); PLATELET COUNT, AUTOMATED 233 10^3/uL (150-450); RED BLOOD COUNT 5.05 10^6/uL (4.30-6.10); WHITE BLOOD COUNT 6.4 10^3/uL (4.0-10.0)
--- OUTSIDE RECORDS SUMMARY | 2020-04-06 03:29 | CCD ---
Author Author [facility] Organization [facility] Address Unknown Phone Unavailable Care Team Providers Care Encapsulator Name Role Phone ANTECOL, Matt PUENTE MD [...] M ALEJANDRO PA Unavailable Unavailable JOSE, M ALJEANDRO PA Unavailable Unavailable JOSE, M ALEJANDRO PA [...] is protected by Article 27-F of the [facility] Public Health law. If you continue you may have access to information: Regarding HIV / AIDS; Provided by facilities licensed or operated by the [facility] Office of Mental Health; or Provided by the [facility] Office for People With Developmental Disabilities. If such information is present, then the following [facility] mandated warning applies: This information has [...] law may result in a fine or long-term sentence or both. A general authorization for the release of medical or other information is NOT sufficient authorization for further disc losure. Family History Family Member Name Family Member Gender Family Member Status Date o f Status Description Data Source(s) Unknown Unknown Problem MEDENT ([facility]) Unknown Unknown Problem MEDENT ([facility]) Unknown Male Problem MEDENT ([facility]) Encounters Encounter Providers Location Date Indications Data Source(s ) Outpatient [address] [facility] [id number] 11/26/2019 12:00:00 AM EDT eCW1 (Pending sale to [facility]) [facility] L[place] [address] [facility] [place] [address] 06/06/2019 12:00:00 AM EDT eCW1 (Pending sale to [facility]) [facility] Vern [address] [facility] [place] [address] 06/04/2019 12:00:00 AM EDT eCW1 (Pending sale to [facility]) [facility] [place] [address] [facility] [place] [address] 05/20/2019 12:00:00 AM EDT eCW1 (Pending sale to [facility]) Outpatient Attender: KWAME MULLINS MD Main Office 05/17/2019 08:45:00 AM EDT MEDENT ([facility]) [facility] [place] [address] [facility] [place] [address] 05/10/2019 12:00:00 AM EDT eCW1 (Pending sale to [facility]) [facility] Vern Sanchez[address] [facility] [place] [address] 05/02/2019 12:00:00 AM EDT eCW1 (Pending sale to [facility]) Outpatient Attender: ALEJANDRO VALDIVIA Physical Therapy 03/17 12:30:00 PM EST MEDENT ([facility]) Outpatient Attender: ALEJANDRO VALDIVIA Physical Therapy 02/14 09:30:00 AM EST MEDENT ([facility]) [facility] Vern Sanchez[address] [facility] [place] [address] 02/06/2019 12:00:00 AM EST eCW1 (Pending sale to [facility]) Immunizations Vaccine Date Status Description Data Source(s) influenza, recombinant, quadrIvalent,injectable, prese rvative free 11/26/2019 10:52:00 AM EDT completed eCW1 ([facility]) Medications Medication Brand Name Start Date Product Form Dose Route Admi nistrative Instructions Pharmacy Instructions Status Indications Reaction Description Data Source(s) levocetirizine dihydrochloride 5 MG Oral Tablet LEVOCETIRIZI NE DIHYDROCHLORIDE 06/07/2019 12:00:00 AM EDT tablet 30 TAKE ONE TABLE T BY MOUTH EVERY EVENING TAKE ONE TABLET BY MOUTH EVERY EVENING SOLD: 06/12/2019 [facility] levocetirizine dihydrochloride 5 MG Oral Tablet Levocetirizine Dihydrochloride 5 MG Levocetirizine Dihydrochloride 5 MG 06/06/2019 12:00:00 AM EDT active 1 tablet in the evening eCW1 ([facility]) levocetirizine dihydrochloride 5 MG Oral Tablet Levocetirizine Dihydrochloride 5 MG Levocetirizine Dihydrochloride 5 MG 06/06/2019 12:00:00 AM EDT 1.0 {tablet_in_the_evening} active Levoceti rizine Dihydrochloride 5 MG eCW1 ([facility]) Ashley Allergy 180 MG Ashley Allergy 180 MG 06/04/2019 12:00:00 AM E DT active 1 tablet as needed eCW1 ( [facility]) Ashley Allergy 180 MG Ashley Allergy 180 MG 06/04/2019 12:00:00 A M EDT 1.0 {tablet_as_needed} active Ashley Aller gy 180 MG eCW1 ([facility]) Nasacort Allergy 24HR 55 MCG/ACT Nasacort Allergy 24HR 55 MC G/ACT 06/04/2019 12:00:00 AM EDT active 1 spray in each nostril eCW1 ([facility]) 55 mcg 06/04/2019 12:00:00 AM EDT aerosol,spray 16 SPRAY 1 SPRAY IN EACH NOSTRIL ONCE DAILY SPRAY 1 SPRAY IN EACH NOSTRIL ONCE DAILY SOLD: 06/05/2019 [facility] Nasacort Allergy 24HR 55 MCG/ACT Nasacort Allergy 24HR 55 MC G/ACT 06/04/2019 12:00:00 AM EDT 1.0 {spray_in_each_nostril} acti ve Nasacort Allergy 24HR 55 MCG/ACT eCW1 ([facility]) atorvastatin 40 MG Oral Tablet Atorvastatin Calcium 40 MG Atorvastatin Calcium 40 MG 05/21/2019 12:00:00 AM EDT active 1 tablet eCW1 ([facility]) Metformin hydrochloride 500 MG Oral Tablet Metformin HCL 05/21/2019 12:00:00 AM EDT ORAL active MEDENT ([facility] 40 mg 05/21/2019 12:00:00 AM EDT tablet 30 TAKE 1 TABLET BY MOUTH ONCE A DAY TAKE 1 TABLET BY MOUTH ONCE A DAY SOLD: 05/29/2019 [facility] Rosuvastatin calcium 40 MG Oral Tablet Rosuvastatin Ca lcium 40 MG Rosuvastatin Calcium 40 MG 05/20/2019 12:00:00 AM EDT active 1 tablet eCW1 ([facility]) Gemfibrozil 600 MG Oral Tablet Gemfibrozil 05/17/2019 12:00:00 AM EDT ORAL active MEDENT ([facility]) Metformin hydrochloride 1000 MG Oral Tablet Metformin HCL ER (Mod) 05/17/2019 12:00:00 AM EDT ORAL completed MEDENT ([facility]) cetirizine hydrochloride 10 MG Oral Tablet [Zyrtec] Zyrtec A llergy 05/16/2019 12:00:00 AM EDT ORAL active M EDENT ([facility]) Flonase Allergy Relief Flonase Allergy Relief 05/16/2019 12:00:00 AM E DT active MEDENT ([facility]) Omeprazole 20 MG Delayed Release Oral Capsule Omeprazole 05/16/2019 12:00:00 AM EDT ORAL active MEDENT ([facility]) cetirizine hydrochloride 10 MG Oral Capsule [Zyrtec] Z yrtec Allergy 10 MG Zyrtec Allergy 10 MG 05/10/2019 12:00:00 AM EDT 1.0 {capsule} active Zyrtec Allergy 10 MG eCW1 ([facility]) 10 mg 05/10/2019 12:00:00 AM EDT tablet [...] 12:00:00 AM EDT active 1 capsule eCW1 ([facility]) Flonase Allergy Relief 50 MCG/ACT Flonase Allergy Relief 50 MCG/ACT 05/10/2019 12:00:00 AM EDT active 1 spray in each nostril eCW1 ([facility]) Flonase Allergy Relief 50 MCG/ACT Flonase Allergy Relief 50 MCG/ACT 05/10/2019 12:00:00 AM EDT 1.0 {spray_in_each_nostril} acti ve Flonase Allergy Relief 50 MCG/ACT eCW1 ([facility]) cetirizine hydrochloride 10 MG Oral Capsule [Zyrtec] Z yrtec Allergy 10 MG Zyrtec Allergy 10 MG 05/10/2019 12:00:00 AM EDT active 1 capsule eCW1 ([facility]) Flonase Allergy Relief 50 MCG/ACT Flonase Allergy Relief 50 MCG/ACT 05/10/2019 12:00:00 AM EDT active 1 spray in each nostril eCW1 ([facility]) 50 mcg/actuation 05/10/2019 12:00:00 AM EDT spray,suspension [...] 02/28/2019 12:00:00 AM EST ORAL active MEDENT ([facility]) Insurance Providers Payer name Policy type / Coverage type Policy ID Covered libertarian ID Covered libertarian's relationship to ngo Policy Ngo Plan Information [facility] [id number] SP [id number] [facility] [id number] SP [id number] [facility] [place] [id number] [facility] [place] [id number] [facility] Health Maintenance Organization (O) [id number] Self [id number] [facility] [id number] [facility] Health Maintenance Organization (HMO) [id number] Self [id number] [facility] [id number] [facility] Health Maintenance Organization (HMO) [id number] Self [id number] [facility] Health Maintenance Organization (HMO) [id number] Self [id number] ANSI-Medicaid [id number] ANSI-Medicaid [id number] ANSI-Medicaid [id number] ANSI-Medicaid [id number] ANSI-Medicaid [id number] ANSI-Medicaid [id number] ANSI-Medicaid [id number] [employer] Commercial [id number] Self [id number] ANSI-Medicaid [id number] [employer] Commercial [id number] Self [id number] [employer] Commercial Self MEDICAID [id number] SP [id number] [employer] [facility] [id number] Problems, Conditions, and Diagnoses Code Display Name Description Problem Type Effective Dates Data Source(s) E78.1 451292901 Hypertriglyceridemia Problem 06/04/2019 12:0 0:00 AM EDT eCW1 ([facility]) E78.1 098058424 Hypertriglyceridemia Problem 06/04/2019 12:0 0:00 AM EDT eCW1 ([facility]) 46117008 Snoring Snoring Problem 05/17/2019 12:00:00 AM ED T MEDENT ([facility]) [id number] Prediabetes Prediabetes Problem 05/17/2019 12:00:00 AM EDT MEDENT ([facility]) [id number] Elevated blood-pressure reading without diagnosis of hypertension Elevated blood-pressure reading without diagnosis of hypertension Problem 05/17/2019 12:00:00 AM EDT MEDENT ([facility]) [id number] Dietary management surveillance Dietary manageme nt surveillance Problem 05/17/2019 12:00:00 AM EDT MEDENT ([facility] [id number] Obesity Obesity Problem 05/17/2019 12:00:00 AM ED T MEDENT ([facility]) [id number] Mixed hyperlipidemia Mixed hyperlipidemia Problem 05/17/2019 12:00:00 AM EDT MEDENT ([facility]) [id number] Electrocardiogram abnormal Electrocardiogram abnormal Problem 05/17/2019 12:00:00 AM EDT MEDENT ([facility]) 55908711 Chest pain Chest pain Problem 05/17/2019 12:00:00 AM ED T MEDENT ([facility]) J30.9 [id number] Allergic rhinitis, unspecified s easonality, unspecified trigger Problem 05/10/2019 12:00:00 AM EDT eCW1 ([facility]) E78.5 79788703 Hyperlipidemia, unspecified hyperlipidemi a type Problem 05/10/2019 12:00:00 AM EDT eCW1 ([facility]) J30.9 35788198 Allergic rhinitis, unspecified s easonality, unspecified trigger Problem 05/10/2019 12:00:00 AM EDT eCW1 ([facility]) [id number] Pure hypercholesterolemia Pure hypercholesterolemia Pr oblem 02/28/2019 12:00:00 AM EST MEDENT ([facility]) Surgeries/Procedures Procedure Description Date Indications Data Source(s) ECG ROUTINE ECG W/LEAST 12 LDS W/I&R 05/17/2019 12:00: 00 AM EDT MEDENT ([facility]) Results ID Date Data Source [id number] 05/10/2019 12:00:00 AM EDT eCW1 ([facility]) Name Value Range Interpretation Code Description Data Analia rce(s) Supporting Document(s) Hemoglobin A1c/Hemoglobin.total in Blood 6.3 HEMOGLOBIN A1c eCW1 ([facility]) ID Date Data Source [id number] 05/07/2019 01:59:00 PM EDT MEDENT ([facility]) Name Value Range Interpretation Code Description Data Analia rce(s) Supporting Document(s) White Blood Count 6.4 4.0-10.0 MEDENT ([facility]) Red Blood Count 5.54 4.30-6.10 MEDENT ([facility]) Hematocrit 47.3 MEDENT ([facility]) Hemoglobin 16.0 MEDENT ([facility]) Platelets 250 150-450 MEDENT ([facility] ID Date Data Source [id number] 05/07/2019 01:59:00 PM EDT MEDENT ([facility]) Name Value Range Interpretation Code Description Data Analia rce(s) Supporting Document(s) Cholesterol 240 MEDENT ([facility]) Triglycerides 518 MEDENT ([facility]) Cholesterol in LDL [Mass/volume] in Serum or Plasma by calculation -- MEDENT ([facility]) Chol/HDL Ratio 5.853 MEDENT ([facility]) HDL 41 MEDENT ([facility] ID Date Data Source [id number] 05/07/2019 01:59:00 PM EDT MEDENT ([facility]) Name Value Range Interpretation Code Description Data Analia rce(s) Supporting Document(s) Albumin [Mass/volume] in Serum or Plasma 3.8 MEDENT ([facility]) Alanine aminotransferase [Enzymatic activity/volume] in Serum or Pl asma 32 MEDENT ([facility]) Calcium [Mass/volume] in Serum or Plasma 9.0 MEDENT ([facility]) Carbon dioxide, total [Moles/volume] in Serum or Plasma 27 MEDENT ([facility]) Chloride [Moles/volume] in Serum or Plasma 108 MEDENT ([facility]) Alkaline phosphatase [Enzymatic activity/volume] in Serum or Plasma 7 5 MEDENT ([facility]) Potassium [Moles/volume] in Serum or Plasma 4.1 MEDENT ([facility]) Aspartate aminotransferase [Enzymatic activity/volume] in Serum or Plasma 13 MEDENT ([facility]) Protein [Mass/volume] in Serum or Plasma 7.5 MEDENT ([facility]) Sodium 140 MEDENT ([facility] Glucose 112 70-100 MEDENT ([facility] Urea nitrogen [Mass/volume] in Serum or Plasma 10 MEDENT ([facility]) Creatinine For GFR 0.76 MEDENT ([facility]) ID Date Data Source [id number] 03/23/2019 11:27:00 AM EST MEDENT ([facility]) Name Value Range Interpretation Code Description Data Analia rce(s) Supporting Document(s) Glomerular Filtration Rate > 60.0 MED ENT ([facility]) <content>Units are mL/min/1.73 m2</content>
<content></content>
<content>Chronic Kidney Disease Staging per NKF:</content>
<content></content>
<content>Stage I & II GFR >=60 Normal to Mildly Decreased</content>
<content>Stage III GFR 30- 59 Moderately Decreased</content>
<content>Stage IV GFR 15-29 Severely Decreased</content>
<content>Stage V GFR <15 Very Little GFR Left</content>
<content>ESRD GFR <15 on SECURITY SYSTEMS SPECIALIST</content>
<content></content> Creatinine For GFR 0.77 mg/dL 0.70-1.30 MEDENT ([facility]) ID Date Data Source [id number] 03/23/2019 11:27:00 AM EST MEDENT ([facility]) Name Value Range Interpretation Code Description Data Analia rce(s) Supporting Document(s) Urea nitrogen [Mass/volume] in Serum or Plasma 11 mg/dL 7-18 MEDENT ([facility]) Procedure Social History Code Duration Value Status Description Data Source(s ) Smoking 12/03/2019 12:00:00 AM EDT Former Smoker completed Former Smoker eCW1 ([facility]) Vital Signs ID Date Data Source UNK Name Value Range Interpretation Code Description Data Source(s) Diastolic blood pressure 74 mm[Hg] 74 mm[Hg] eCW1 ([facility]) Systolic blood pressure 138 mm[Hg] 138 mm[Hg] e CW1 ([facility]) Body temperature 97.4 [degF] 97.4 [degF] eCW1 ( [facility]) Respiratory rate 18 /min 18 /min eCW1 ([facility]) Heart rate 94 /min 94 /min eCW1 ([facility]) Body mass index (BMI) [Ratio] 39.57 kg/m2 39.57 kg/m2 eCW1 ([facility]) Body height [in_i] eCW1 ([facility]) Body weight 268 [lb_av] 268 [lb_av] W1 ([facility]) Diastolic blood pressure 72 mm[Hg] 72 mm[Hg] eCW1 ([facility]) Systolic blood pressure 122 mm[Hg] 122 mm[Hg] e CW1 ([facility]) Body temperature 95.6 [degF] 95.6 [degF] eCW1 ( [facility]) Respiratory rate 18 /min 18 /min eCW1 ([facility]) Heart rate 101 /min 101 /min eCW1 ([facility]) Body mass index (BMI) [Ratio] 38.51 kg/m2 38.51 kg/m2 W1 ([facility]) Body height [in_us] eCW1 ([facility]) Body weight Measured 260.8 [lb_av] 260.8 [lb_av ] eCW1 ([facility]) Diastolic blood pressure--sitting 96 mm[Hg] 96 mm[Hg] MEDENT ([facility]) Omron XL cuff, Ra Systolic blood pressure--sitting 133 mm[Hg] 133 mm[Hg] MEDENT ([facility]) Omron XL cuff, Ra Heart rate 83 /min 83 /min MEDENT ([facility]) Body mass index (BMI) [Ratio] 37.8 kg/m2 37.8 k g/m2 MEDENT ([facility]) Body height 69 [in_i] 69 [in_i] MEDENT ([facility]) 5'9" Body weight 256.00 [lb_av] 256.00 [lb_av] MEDEN T ([facility]) Diastolic blood pressure 74 mm[Hg] 74 mm[Hg] eCW1 ([facility]) Systolic blood pressure 128 mm[Hg] 128 mm[Hg] e CW1 ([facility]) Body temperature 96.5 [degF] 96.5 [degF] eCW1 ( [facility]) Respiratory rate 18 /min 18 /min eCW1 ([facility]) Heart rate 116 /min 116 /min eCW1 ([facility]) Body mass index (BMI) [Ratio] 38.18 kg/m2 38.18 kg/m2 eCW1 ([facility]) Body height [in_us] eCW1 ([facility]) Body weight Measured 258.6 [lb_av] 258.6 [lb_av ] eCW1 ([facility]) Body mass index (BMI) [Ratio] 31.4 kg/m2 31.4 k g/m2 MEDENT ([facility]) Body weight 225.25 [lb_av] 225.25 [lb_av] MEDEN T ([facility]) Body height 71 [in_i] 71 [in_i] MEDENT ([facility]) 5'11" Patient Treatment Plan of Care Planned Activity Planned Date Details Description Data Source (s) levocetirizine dihydrochloride 5 MG Oral Tablet 06/06/2019 12:00:00 AM EDT eCW1 ([facility]) Nasacort Allergy 24HR 55 MCG/ACT 06/04/2019 12:00:00 AM EDT eCW1 ([facility]) Ashley Allergy 180 MG 06/04/2019 12:00:00 AM EDT eCW1 ([facility]) atorvastatin 40 MG Oral Tablet 05/21/2019 12:00:00 AM EDT eCW1 ([facility]) Rosuvastatin calcium 40 MG Oral Tablet 05/20/2019 12:00:00 AM EDT eCW1 ([facility]) cetirizine hydrochloride 10 MG Oral Capsule [Zyrtec] 020 12:00:00 AM EDT eCW1 (Pending sale to [facility]) Flonase Allergy Relief 50 MCG/ACT 05/10/2019 12:00:00 AM EDT eCW1 ([facility])
--- NOTE | 2020-04-06 03:37 | REPVR ---
PROCEDURE INFORMATION: Exam: XR Chest, 2 Views Exam date and time: 04/06/2020 3:08 AM Age: 50 years old Clinical indication: Other: Chest pain TECHNIQUE: Imaging protocol: XR of the chest Views: 2 views. COMPARISON: DX CHEST 2 VIEW 03/20/2018 9:59 AM FINDINGS: Lungs: Unremarkable. No consolidation. Pleural spaces: Unremarkable. No pleural effusion. No pneumothorax. Heart/Mediastinum: Unremarkable. No cardiomegaly. Bones/joints: Decreased height and/or wedge configuration of several midthoracic segments which appear to be chronic. IMPRESSION: Negative chest, unchanged from 03/20/2018. Electronically signed by: Eligio Gil On 04/06/2020 03:37:49 AM
[2020-04-06 03:39] LABS: ALBUMIN 3.4 GM/DL (3.2-5.2); ALT/SGPT 41 U/L (12-78); BILIRUBIN,DIRECT < 0.1 MG/DL (0.0-0.2); BILIRUBIN,TOTAL 0.3 MG/DL (0.2-1.0); BLOOD UREA NITROGEN 10 MG/DL (7-18); CALCIUM LEVEL 8.2 MG/DL (8.5-10.1); CARBON DIOXIDE LEVEL 27 MEQ/L (21-32); CHLORIDE LEVEL 107 MEQ/L (98-107); CK-MB VALUE MASS < 1.0 NG/ML (<3.6); CPK CREATINE PHOSPHOKINASE 185 U/L (39-308); CREATININE FOR GFR 0.78 MG/DL (0.70-1.30); FREE T4 0.95 NG/DL (0.76-1.46); GLOMERULAR FILTRATION RATE > 60.0 (>60); GLUCOSE, FASTING 111 MG/DL (70-100); LIPASE 152 U/L (73-393); MB/CK RELATIVE INDEX 0.54 (< OR =4); POTASSIUM SERUM 5.6 MEQ/L (3.5-5.1); SODIUM LEVEL 140 MEQ/L (136-145); TOTAL PROTEIN 6.9 GM/DL (6.4-8.2); TROPONIN I < 0.02 NG/ML (< 0.10)
[2020-04-06] MEDS ORDERED: NS 1,000 ML IV SCH (04:05)
[2020-04-06] MEDS ORDERED: SOD POLYSTYRENE SULFONATE SUSP 15 GM/60 ML UD PO ONE (04:15)
[2020-04-06 08:53] LABS: CK-MB VALUE MASS < 1.0 NG/ML (<3.6); CPK CREATINE PHOSPHOKINASE 108 U/L (39-308); MB/CK RELATIVE INDEX 0.93 (< OR =4); TROPONIN I < 0.02 NG/ML (< 0.10)
--- NOTE | 2020-04-06 09:31 | ECGEPIP ---
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
--- NOTE | 2020-04-06 09:33 | ECGEPIP ---
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
[2020-04-06] MEDS ORDERED: GI COCKTAIL 50ML BTL(HYOSCYAMINE/MAALOX/LIDOCAINE VISCOUS)(1:3:1) PO ONE (09:45)
--- NOTE | 2020-04-06 09:55 | REP ---
INDICATION: "dizzyness". COMPARISON: None. TECHNIQUE: CT BRAIN PERFORMED IN THE AXIAL PLANE. CORONAL RECONSTRUCTION IMAGES ARE PERFORMED. FINDINGS: Lateral ventricles are midline, symmetric and without dilatation or displacement. 3rd and 4th ventricles are unremarkable. Basal ganglia are symmetric and normal lees-white junction differentiation well-maintained. Cortical stripe is preserved. There is no vascular territory infarct, intracranial hemorrhage, extra-axial fluid collection or mass/mass effect. Brainstem and cerebellum are intact. No posterior fossa bleed. Basal cisterns are intact. Visualized mastoids and sinuses are clear. The calvarium and skull base are without fracture or focal lesion. There is slight deviation of nasal septum towards the right IMPRESSION: 1. Negative noncontrast CT brain. No intracranial bleed, acute infarct, mass, mass effect or other acute finding. <Electronically signed by Deni Romo > 04/06/20 [id number]
[2020-04-06 10:01] VITALS: BP 140/90
[2020-04-06] MEDS ORDERED: SUCR1TA PO (10:12)
[2020-04-06] MEDS ORDERED: OMEP40CA97 PO (10:12)
== END 2020-04-06 10:24 | disposition home or self-care (01) ==
LOC: M ED 01:59
DX: R07.89 Other chest pain (principal); R11.0 Nausea; E78.5 Hyperlipidemia, unspecified; Z79.899 Other long term (current) drug therapy

== ENCOUNTER → 2020-04-14 | Outpatient (REF) | payer OTHER ==
[~2020-04-14] MED LIST changes: +IBUP1TAB6 PO; +MOM30SS PO; +OMEP-405 PO; +OMEP40CA97 PO; +SUCR1TA PO
[2020-04-14 13:54] LABS: ALBUMIN 3.8 GM/DL (3.2-5.2); ALT/SGPT 60 U/L (12-78); BILIRUBIN,TOTAL 0.4 MG/DL (0.2-1.0); BLOOD UREA NITROGEN 8 MG/DL (7-18); CALCIUM LEVEL 9.1 MG/DL (8.5-10.1); CARBON DIOXIDE LEVEL 29 MEQ/L (21-32); CHLORIDE LEVEL 104 MEQ/L (98-107); CREATININE FOR GFR 0.83 MG/DL (0.70-1.30); GLOMERULAR FILTRATION RATE > 60.0 (>60); GLUCOSE, FASTING 104 MG/DL (70-100); POTASSIUM SERUM 4.2 MEQ/L (3.5-5.1); SODIUM LEVEL 138 MEQ/L (136-145); TOTAL PROTEIN 7.4 GM/DL (6.4-8.2)
== END ==
LOC: M SFHCADAM 11:24
PROVIDERS: ATTEND Family Medicine
DX: R73.03 Prediabetes (principal)

== ENCOUNTER 2021-01-11 05:57 | Emergency (ER) | payer OTHER ==
[~2021-01-11] VITALS: Ht 175.3 cm; Wt 130.8 kg
[~2021-01-11 05:57] MED LIST changes: +OMEP40CA4 PO; -OMEP40CA97 PO
[2021-01-11] MEDS ORDERED: SUDA15LI2 PO (06:02)
[2021-01-11] MEDS ORDERED: MUCI1TAB16 PO (06:02)
[2021-01-11 07:01] LABS: RSV AMPLIFICATION NEGATIVE (NEGATIVE)
[2021-01-11 09:54] VITALS: BP 140/79
[2021-01-11] MEDS ORDERED: AZIT-12 PO (11:03)
[2021-03-11] MEDS ORDERED: PANT40TA29 PO (12:12)
== END 2021-01-11 11:47 | disposition home or self-care (01) ==
LOC: M ED 05:57
DX: R05.9 Cough, unspecified (principal); R91.8 Other nonspecific abnormal finding of lung field; R03.0 Elevated blood-pressure reading, without diagnosis of hypertension; R07.9 Chest pain, unspecified; R42 Dizziness and giddiness; Z87.891 Personal history of nicotine dependence; K21.9 Gastro-esophageal reflux disease without esophagitis

== ENCOUNTER → 2021-01-21 | Outpatient (CLI) | payer OTHER ==
[~2021-01-21] MED LIST changes: +AZIT-12 PO; +MUCI1TAB16 PO; +SUDA15LI2 PO
--- NOTE | 2021-01-21 11:06 | REP ---
INDICATION: ABNORMAL CXR COMPARISON: 01/11/2021 TECHNIQUE: PA and lateral. FINDINGS: The mediastinum and cardiac silhouette are normal. The lung ugarte well aerated and the previously noted vague right mid lung opacity has significantly decreased in size now measuring approximately 1 cm round and underlying nodule cannot be excluded.. No further acute consolidation, effusion, or pneumothorax. Skeletal structures intact. IMPRESSION: 1. Decreased opacity in the right mid lung zone as compared to prior examination. 2. Small central 1 cm rounded opacity possible nodule remains in the right midlung zone. Consider short-term follow-up x-ray or CT for further investigation. <Electronically signed by Sharan Rosales > 01/21/21 1100
== END ==
LOC: M ADAMS 10:27
PROVIDERS: ATTEND Physician Assistant
DX: R93.89 Abnormal findings on diagnostic imaging of other specified body structures (principal)

== ENCOUNTER → 2021-02-10 | Outpatient (CLI) | payer OTHER ==
[~2021-02-10] MED LIST changes: +ISOVUE-370 76% 100ML VIAL As Ordered ONE; +PANT40TA29 PO
== END ==
LOC: M RAD 16:34
PROVIDERS: ATTEND Family Medicine
DX: R91.1 Solitary pulmonary nodule (principal)
CPT/HCPCS: 71260; Q9967

== ENCOUNTER → 2021-03-13 | Outpatient (CLI) | payer OTHER ==
[~2021-03-13] MED LIST changes: -ISOVUE-370 76% 100ML VIAL As Ordered ONE
== END ==
LOC: M SOG 08:39
PROVIDERS: ATTEND Orthopaedic Surgery Sports Medicine
DX: M75.42 Impingement syndrome of left shoulder (principal); M75.41 Impingement syndrome of right shoulder

== ENCOUNTER → 2021-03-23 | Outpatient (CLI) | payer OTHER | LOC: M LABSMTC 11:41 | PROVIDERS: ATTEND Anesthesiology | DX: Z01.818 Encounter for other preprocedural examination (principal); Z11.52 Encounter for screening for COVID-19 ==

== ENCOUNTER 2021-03-25 11:56 | Day surgery (SDC) | payer OTHER ==
[~2021-03-25] VITALS: Ht 175.3 cm; Wt 126.0 kg
[~2021-03-25 11:56] MED LIST changes: +NS 1,000 ML IV ONE
[2021-03-25] MEDS ORDERED: propofoL 500 MG/50 ML VIAL As Ordered ONE (13:43)
[2021-03-25] MEDS ORDERED: GLYCOPYRROLATE INJ 0.2 MG/ML 2 ML VIAL As Ordered ONE (14:01)
[2021-03-25] MEDS ORDERED: LIDOCAINE 2% 100MG/5ML SDV (FOR ANES.) As Ordered ONE (14:01)
[2021-03-25 15:25] VITALS: BP 142/90
== END 2021-03-25 15:29 | disposition home or self-care (01) ==
LOC: M OPP 11:56
PROVIDERS: ATTEND Surgery
DX: Z12.11 Encounter for screening for malignant neoplasm of colon (principal); K63.5 Polyp of colon; D17.5 Benign lipomatous neoplasm of intra-abdominal organs; K57.30 Diverticulosis of large intestine without perforation or abscess without bleeding; K29.50 Unspecified chronic gastritis without bleeding; K64.8 Other hemorrhoids; R10.12 Left upper quadrant pain; R12 Heartburn; G47.30 Sleep apnea, unspecified; Z79.899 Other long term (current) drug therapy; Z86.19 Personal history of other infectious and parasitic diseases

== ENCOUNTER → 2021-06-10 | Outpatient (REF) | payer OTHER ==
[~2021-06-10] MED LIST changes: -NS 1,000 ML IV ONE
[2021-06-10 16:29] LABS: BASO # 0.1 10^3/uL (0.0-0.2); EOS # 0.1 10^3/uL (0.0-0.5); EOS % 1.7 % (0.0-3.0); HEMATOCRIT 44.7 % (42.0-52.0); LYMPH # 1.4 10^3/uL (1.5-5.0); MEAN CORPUSCULAR HEMOGLOBIN 27.5 pg (27.0-33.0); MEAN CORPUSCULAR HGB CONC 33.6 g/dl (32.0-36.5); MEAN CORPUSCULAR VOLUME 81.9 fl (80.0-96.0); MONO # 0.7 10^3/uL (0.0-0.8); MONO % 9.8 % (2.0-8.0); NEUTROPHILS # 4.9 10^3/uL (1.5-8.5); NEUTROPHILS % 68.1 % (36.0-66.0); PLATELET COUNT, AUTOMATED 260 10^3/uL (150-450); RED BLOOD COUNT 5.46 10^6/uL (4.30-6.10); WHITE BLOOD COUNT 7.2 10^3/uL (4.0-10.0)
[2021-06-10 16:38] LABS: ALBUMIN 3.9 GM/DL (3.2-5.2); ALT/SGPT 38 U/L (12-78); BILIRUBIN,TOTAL 0.5 MG/DL (0.2-1.0); BLOOD UREA NITROGEN 10 MG/DL (7-18); CALCIUM LEVEL 9.9 MG/DL (8.5-10.1); CARBON DIOXIDE LEVEL 26 MEQ/L (21-32); CHLORIDE LEVEL 106 MEQ/L (98-107); CREATININE FOR GFR 0.76 MG/DL (0.70-1.30); GLOMERULAR FILTRATION RATE > 60.0 (>56); GLUCOSE, FASTING 114 MG/DL (70-100); POTASSIUM SERUM 4.2 MEQ/L (3.5-5.1); SODIUM LEVEL 140 MEQ/L (136-145); TOTAL PROTEIN 7.3 GM/DL (6.4-8.2)
== END ==
LOC: M SFHCADAM 13:08
PROVIDERS: ATTEND Family Medicine
DX: R73.03 Prediabetes (principal)

== ENCOUNTER → 2022-01-04 | Outpatient (CLI) | payer OTHER | LOC: M RAD 08:04 | PROVIDERS: ATTEND Family Medicine | DX: R10.811 Right upper quadrant abdominal tenderness (principal); K76.0 Fatty (change of) liver, not elsewhere classified ==

== ENCOUNTER → 2022-01-05 | Outpatient (REF) | payer OTHER ==
[2022-01-05 19:37] LABS: FERRITIN 49.1 NG/ML (10.5-307.3); HEPATITIS B SURFACE ANTIBODY NEGATIVE (POSITIVE); HEPATITIS B SURFACE ANTIGEN NEGATIVE (NEGATIVE); IRON (FE) 58 UG/DL (65-175); PERCENT SATURATION 14.6 % (19.7-50.0); TOTAL IRON BINDING CAPACITY 398 UG/DL (250-425)
== END ==
LOC: M SFHCADAM 14:14
PROVIDERS: ATTEND Family Medicine
DX: K76.0 Fatty (change of) liver, not elsewhere classified (principal)

== ENCOUNTER → 2022-02-01 | Outpatient (REF) | payer OTHER ==
[2022-02-01 13:19] LABS: C REACTIVE PROTEIN QUANTITATIV 0.7 MG/DL (<1.0)
[2022-02-01 13:21] LABS: FREE T4 1.01 NG/DL (0.89-1.76)
[2022-02-01 13:22] LABS: THYROID STIMULATING HORMONE 2.383 uIU/ML (0.55-4.78)
[2022-02-02 15:07] LABS: ANTINUCLEAR ANTIBODIES DIRECT Negative (Negative)
== END ==
LOC: M SFHCADAM 09:09
PROVIDERS: ATTEND Family Medicine
DX: M25.511 Pain in right shoulder (principal); M25.512 Pain in left shoulder; G89.29 Other chronic pain; F41.9 Anxiety disorder, unspecified

== ENCOUNTER → 2022-03-03 | Outpatient (CLI) | payer OTHER | LOC: M SOG 08:03 | PROVIDERS: ATTEND Orthopaedic Surgery | DX: M25.511 Pain in right shoulder (principal); M25.512 Pain in left shoulder ==

== ENCOUNTER → 2022-04-14 | Outpatient (REF) | payer OTHER | LOC: M SFHCADAM 12:38 | PROVIDERS: ATTEND Physician Assistant | DX: R05.1 Acute cough (principal) ==

== ENCOUNTER → 2022-04-15 | Outpatient (CLI) | payer OTHER ==
[~2022-04-15] MED LIST changes: +E-Z-GAS II EFFERVESCENT PACKET (SODIUM BICARB./CITRIC ACID/SIMETHICONE) As Ordered ONE; +E-Z-HD 98% w/w 340GM SUSP BTL As Ordered ONE; +E-Z-PAQUE 96% w/w SUSP 176GM BTL As Ordered ONE
== END ==
LOC: M RAD 09:56
PROVIDERS: ATTEND Internal Medicine Gastroenterology
DX: R11.2 Nausea with vomiting, unspecified (principal)

== ENCOUNTER → 2022-04-21 | Outpatient (CLI) | payer OTHER ==
[~2022-04-21] MED LIST changes: -E-Z-GAS II EFFERVESCENT PACKET (SODIUM BICARB./CITRIC ACID/SIMETHICONE) As Ordered ONE; -E-Z-HD 98% w/w 340GM SUSP BTL As Ordered ONE; -E-Z-PAQUE 96% w/w SUSP 176GM BTL As Ordered ONE
== END ==
LOC: M ADAMS 13:44
PROVIDERS: ATTEND Physician Assistant Medical
DX: R06.09 Other forms of dyspnea (principal); R05.8 Other specified cough

== ENCOUNTER → 2022-05-17 | Outpatient (REF) | payer OTHER | LOC: M SFHCADAM 12:20 | PROVIDERS: ATTEND Family Medicine | DX: J06.9 Acute upper respiratory infection, unspecified (principal) ==

== ENCOUNTER 2022-06-28 13:06 | Emergency (ER) | payer OTHER ==
[~2022-06-28] VITALS: Ht 175.3 cm; Wt 120.1 kg
[2022-06-28] MEDS ORDERED: LEXA1TAB2 PO (14:21)
[2022-06-28] MEDS ORDERED: NORCO, ANEXSIA 5/325MG TABLET (HYDROcodone/ACETAMINOPHEN) PO ONE (15:25)
[2022-06-28] MEDS ORDERED: HYDR-3713 PO (15:27)
[2022-06-28] MEDS ORDERED: NAPR-837 PO (15:27)
[2022-06-28 15:38] VITALS: BP 169/90
== END 2022-06-28 15:39 | disposition home or self-care (01) ==
LOC: M ED 13:06
DX: S22.42XA Multiple fractures of ribs, left side, initial encounter for closed fracture (principal); W01.110A Fall on same level from slipping, tripping and stumbling with subsequent striking against sharp glass, initial encounter; G47.33 Obstructive sleep apnea (adult) (pediatric); K21.9 Gastro-esophageal reflux disease without esophagitis; Z79.1 Long term (current) use of non-steroidal anti-inflammatories (NSAID); Z79.899 Other long term (current) drug therapy

== ENCOUNTER → 2022-07-26 | Outpatient (CLI) | payer OTHER ==
[~2022-07-26] MED LIST changes: +HYDR-3713 PO; +LEXA1TAB2 PO; +NAPR-837 PO
== END ==
LOC: M ADAMS 09:48
PROVIDERS: ATTEND Family Medicine
DX: M54.42 Lumbago with sciatica, left side (principal)

== ENCOUNTER → 2023-01-17 | Outpatient (CLI) | payer OTHER | LOC: M ADAMS 13:18 | PROVIDERS: ATTEND Family Medicine | DX: R05.1 Acute cough (principal) ==

== ENCOUNTER → 2023-06-15 | Outpatient (REF) | payer OTHER ==
[2023-06-15 17:57] LABS: ALBUMIN 3.9 G/DL (3.2-5.2); ALKALINE PHOSPHATASE 68 U/L (46-116); ALT/SGPT 33 U/L (7.0-40); AST/SGOT 16 U/L (<34); BASO # 0.1 10^3/uL (0.0-0.2); BASO % 1.1 % (0.0-1.0); BILIRUBIN,TOTAL 0.4 MG/DL (0.3-1.2); BLOOD UREA NITROGEN 13 MG/DL (9-23); CALCIUM LEVEL 9.4 MG/DL (8.5-10.1); CARBON DIOXIDE LEVEL 28 MMOL/L (20-31); CHLORIDE LEVEL 100 MMOL/L (98-107); CREATININE FOR GFR 0.75 MG/DL (0.70-1.30); EOS # 0.1 10^3/uL (0.0-0.5); EOS % 1.3 % (0.0-3.0); GLOMERULAR FILTRATION RATE > 60.0 (>56); GLUCOSE, FASTING 96 MG/DL (60-100); HEMATOCRIT 45.2 % (42.0-52.0); HEMOGLOBIN 15.1 g/dl (13.5-17.5); LYMPH # 1.8 10^3/uL (1.5-5.0); LYMPH % 21.6 % (24.0-44.0); MEAN CORPUSCULAR HGB CONC 33.4 g/dl (32.0-36.5); MEAN CORPUSCULAR VOLUME 83.7 fl (80.0-96.0); MONO # 0.8 10^3/uL (0.0-0.8); MONO % 9.4 % (2.0-8.0); NEUTROPHILS # 5.4 10^3/uL (1.5-8.5); NEUTROPHILS % 65.5 % (36.0-66.0); PLATELET COUNT, AUTOMATED 293 10^3/uL (150-450); POTASSIUM SERUM 4.2 MMOL/L (3.5-5.1); SODIUM LEVEL 136 MMOL/L (136-145); TOTAL PROTEIN 7.3 G/DL (5.7-8.2); WHITE BLOOD COUNT 8.3 10^3/uL (4.0-10.0)
== END ==
LOC: M SFHCADAM 13:58
PROVIDERS: ATTEND Family Medicine
DX: Z01.818 Encounter for other preprocedural examination (principal)

== ENCOUNTER → 2023-12-14 | Outpatient (CLI) | payer OTHER ==
[2023-12-14 13:09] LABS: BASO # 0.1 10^3/uL (0.0-0.2); BASO % 0.7 % (0.0-1.0); EOS # 0.1 10^3/uL (0.0-0.5); HEMATOCRIT 44.1 % (42.0-52.0); HEMOGLOBIN 14.7 g/dl (13.5-17.5); LYMPH # 1.3 10^3/uL (1.5-5.0); LYMPH % 13.4 % (24.0-44.0); MEAN CORPUSCULAR HEMOGLOBIN 28.3 pg (27.0-33.0); MEAN CORPUSCULAR HGB CONC 33.3 g/dl (32.0-36.5); MEAN CORPUSCULAR VOLUME 84.8 fl (80.0-96.0); MONO # 1.1 10^3/uL (0.0-0.8); MONO % 11.3 % (2.0-8.0); NEUTROPHILS % 73.1 % (36.0-66.0); PLATELET COUNT, AUTOMATED 265 10^3/uL (150-450); WHITE BLOOD COUNT 9.6 10^3/uL (4.0-10.0)
[2023-12-14 13:13] LABS: ALBUMIN 3.6 G/DL (3.2-5.2); ALKALINE PHOSPHATASE 64 U/L (40-129); ALT/SGPT 26 U/L (7.0-40); AST/SGOT 8 U/L (<34); BILIRUBIN,TOTAL 0.4 MG/DL (0.3-1.2); BLOOD UREA NITROGEN 13 MG/DL (9-23); CALCIUM LEVEL 9.4 MG/DL (8.5-10.1); CARBON DIOXIDE LEVEL 28 MMOL/L (20-31); CHLORIDE LEVEL 108 MMOL/L (98-107); CHOLESTEROL LEVEL 248 MG/DL (<200); CHOLESTEROL RISK RATIO 5.94 (<5); CREATININE FOR GFR 0.69 MG/DL (0.70-1.30); GLOMERULAR FILTRATION RATE > 60.0 (>56); GLUCOSE, FASTING 122 MG/DL (60-100); HDL CHOLESTEROL 41.7 MG/DL (>40); LDL CHOLESTEROL 129.5 MG/DL (<100); NON-HDL-C 206.3 MG/DL; POTASSIUM SERUM 4.2 MMOL/L (3.5-5.1); SODIUM LEVEL 141 MMOL/L (136-145); TOTAL PROTEIN 7.3 G/DL (5.7-8.2); TRIGLYCERIDES LEVEL 384 MG/DL (<150)
[2023-12-14 13:17] LABS: THYROID STIMULATING HORMONE 1.123 uIU/ML (0.55-4.78)
[2023-12-14 14:12] LABS: HEMOGLOBIN A1c 6.1 % (4.0-6.0)
== END ==
LOC: M PLALAB 09:40
PROVIDERS: ATTEND Family Medicine
DX: Z00.00 Encounter for general adult medical examination without abnormal findings (principal); R73.03 Prediabetes

== ENCOUNTER → 2024-01-20 | Outpatient (CLI) | payer OTHER | LOC: M RAD 16:50 | PROVIDERS: ATTEND Family Medicine | DX: Z12.2 Encounter for screening for malignant neoplasm of respiratory organs (principal); F17.211 Nicotine dependence, cigarettes, in remission ==

== ENCOUNTER 2024-05-18 16:01 | Emergency (ER) | payer OTHER ==
[~2024-05-18] VITALS: Ht 175.3 cm; Wt 135.0 kg
[2024-05-18] MEDS: NS (Normal Saline) 0.9% 1,000 ML IV ONE (20:00)
[2024-05-18 20:01] LABS: APPEARANCE, URINE HAZY (CLEAR); BACTERIA, URINE AUTO NEGATIVE (NEGATIVE); BASO # 0.1 10^3/uL (0.0-0.2); BASO % 0.8 % (0.0-1.0); BILIRUBIN, URINE AUTO NEGATIVE (NEGATIVE); BLOOD, URINE BLOOD NEGATIVE (NEGATIVE); COLOR, URINE YELLOW (YELLOW); EOS # 0.1 10^3/uL (0.0-0.5); EOS % 1.3 % (0.0-3.0); GLUCOSE, URINE (UA) AUTO NEGATIVE (NEGATIVE); HEMATOCRIT 45.5 % (42.0-52.0); HEMOGLOBIN 15.4 g/dl (13.5-17.5); KETONE, URINE AUTO 1+ mg/dL (NEGATIVE); LEUKOCYTE ESTERASE, URINE AUTO NEGATIVE (NEGATIVE); LYMPH # 1.7 10^3/uL (1.5-5.0); LYMPH % 15.7 % (24.0-44.0); MEAN CORPUSCULAR HEMOGLOBIN 27.6 pg (27.0-33.0); MEAN CORPUSCULAR HGB CONC 33.8 g/dl (32.0-36.5); MEAN CORPUSCULAR VOLUME 81.5 fl (80.0-96.0); MONO % 9.7 % (2.0-8.0); MUCUS, URINE SMALL (NEGATIVE); NEUTROPHILS # 7.7 10^3/uL (1.5-8.5); NEUTROPHILS % 72.1 % (36.0-66.0); NITRITE, URINE AUTO NEGATIVE (NEGATIVE); PLATELET COUNT, AUTOMATED 269 10^3/uL (150-450); PROTEIN, URINE AUTO 2+ mg/dL (NEGATIVE); RBC, URINE AUTO 0 /HPF (0-3); RED BLOOD COUNT 5.58 10^6/uL (4.30-6.10); SPECIFIC GRAVITY URINE AUTO 1.023 (1.002-1.035); SQUAMOUS EPITHELIAL CELL UR AU 0 /HPF (0-6); UROBILINOGEN, URINE AUTO 0.2 mg/dL (0.0-2.0); WBC, URINE AUTO 0 /HPF (0-3); WHITE BLOOD COUNT 10.7 10^3/uL (4.0-10.0)
[2024-05-18 20:31] LABS: LIPASE 33 U/L (12-53)
[2024-05-18] MEDS: KETOROLAC 30 MG/ML 1ML VIAL IV ONE (20:32)
[2024-05-18 20:33] LABS: ALBUMIN 3.9 G/DL (3.2-5.2); ALKALINE PHOSPHATASE 64 U/L (40-129); ALT/SGPT 50 U/L (7.0-40); AST/SGOT 30 U/L (<34); BILIRUBIN,DIRECT 0.1 MG/DL (<0.4); BILIRUBIN,TOTAL 0.4 MG/DL (0.3-1.2); BLOOD UREA NITROGEN 15 MG/DL (9-23); CALCIUM LEVEL 9.8 MG/DL (8.5-10.1); CARBON DIOXIDE LEVEL 27 MMOL/L (20-31); CHLORIDE LEVEL 103 MMOL/L (98-107); CREATININE FOR GFR 0.74 MG/DL (0.70-1.30); GLOMERULAR FILTRATION RATE > 60.0 (>56); GLUCOSE, FASTING 88 MG/DL (60-100); SODIUM LEVEL 139 MMOL/L (136-145); TOTAL PROTEIN 7.5 G/DL (5.7-8.2)
[2024-05-18 21:07] VITALS: BP 145/85; TEMP 97.3; O2SAT 97
== END 2024-05-18 21:48 | disposition home or self-care (01) ==
LOC: M ED 16:01
DX: R10.9 Unspecified abdominal pain (principal); M48.061 Spinal stenosis, lumbar region without neurogenic claudication; K21.9 Gastro-esophageal reflux disease without esophagitis; F41.9 Anxiety disorder, unspecified; Z87.442 Personal history of urinary calculi; Z79.899 Other long term (current) drug therapy
CPT/HCPCS: 74176; 80048; 80076; 81001; 83690; 85025; 96361; 96374; 99284; J1885

== ENCOUNTER → 2024-05-18 | Outpatient (REF) | payer OTHER | LOC: M LAB REF 17:09 | PROVIDERS: ATTEND Nurse Practitioner Family | DX: M54.50 Low back pain, unspecified (principal) ==

== ENCOUNTER → 2024-06-18 | Outpatient (CLI) | payer OTHER | LOC: M SOG 08:10 | PROVIDERS: ATTEND Orthopaedic Surgery | DX: M25.511 Pain in right shoulder (principal) ==

== ENCOUNTER → 2024-08-21 | Outpatient (CLI) | payer OTHER | LOC: M RAD 12:09 | PROVIDERS: ATTEND Family Medicine | DX: R80.9 Proteinuria, unspecified (principal) ==

== ENCOUNTER 2024-09-02 07:07 | Emergency (ER) | payer OTHER ==
[2024-09-02] MEDS: ACETAMINOPHEN 500 MG TAB PO ONE (08:11)
[2024-09-02] MEDS: LIDOCAINE 5% PATCH TD ONE (08:12)
[2024-09-02] MEDS: KETOROLAC 30 MG/ML 1 ML VIAL IM ONE (08:12)
[2024-09-02] MEDS: predniSONE 20 MG TAB PO ONE (09:15)
[2024-09-02] MEDS ORDERED: KETO-204 PO (11:20)
[2024-09-02] MEDS ORDERED: METH-1165 PO (11:20)
[2024-09-02] MEDS ORDERED: MEDR4PAK PO (11:20)
[2024-09-02] MEDS ORDERED: CEPH500C PO (11:20)
[2024-09-02 11:33] VITALS: BP 132/67; TEMP 97.6; O2SAT 98
== END 2024-09-02 11:35 | disposition home or self-care (01) ==
LOC: M ED 07:07
DX: S62.634A Displaced fracture of distal phalanx of right ring finger, initial encounter for closed fracture (principal); M48.061 Spinal stenosis, lumbar region without neurogenic claudication; M51.16 Intervertebral disc disorders with radiculopathy, lumbar region; M25.78 Osteophyte, vertebrae; Y92.9 Unspecified place or not applicable; Y93.9 Activity, unspecified; Y99.9 Unspecified external cause status; K21.9 Gastro-esophageal reflux disease without esophagitis; F41.9 Anxiety disorder, unspecified; Z79.2 Long term (current) use of antibiotics; Z79.899 Other long term (current) drug therapy
CPT/HCPCS: 72131; 73140; 96372; 99283; J1885; J7512